=== PATIENT | male | born 1995 | race Caucasian/White ===

== ENCOUNTER 2021-12-04 12:23 | Emergency (ER) | payer OTHER, MEDICAID, SELFPAY ==
[2021-12-04 12:29] VITALS: BP 177/104; PULSE 86; RESP 18; TEMP 36.4; O2SAT 96; BMI 42.8
--- NOTE | 2021-12-04 14:48 | DI.RAD.S_ITS ---
PROCEDURE: XR HAND LT MIN 3V INDICATIONS: Left hand pain TECHNIQUE: 3 views of the hand acquired. COMPARISON: None. FINDINGS: Bones: No acute fractures or dislocations. Carpal bones are normally aligned. No suspicious bony lesions. Soft tissues: No suspicious soft tissue calcifications. Nonspecific soft tissue swelling is seen in the interspace between the 1st and 2nd digits. IMPRESSION: No acute osseous abnormality. Nonspecific soft tissue prominence in the interspace between the 1st and 2nd digits. Recommend correlation with clinical exam findings. MRI could be obtained for further evaluation if indicated clinically. Dictated by: Edmundo Álvarez M.D. on 12/04/2021 at 15:05 Approved by: Edmundo Álvarez M.D. on 12/04/2021 at 15:07
--- NOTE | 2021-12-04 15:09 | ED_ITS ---
HPI - Extremity Problem <Edwin Oseguera PA-C - Last Filed: 12/04/21 19:23> General Chief complaint: Extremity Problem,Nontraumatic Stated complaint: Left Hand Swelling/Pain/Tingling Time Seen by Provider: 12/04/21 14:46 Source: patient Mode of arrival: Ambulatory History of Present Illness HPI Narrative: Patient is a 26-year-old male presenting to the emergency department today for evaluation of left hand pain and swelling. He explains he has experienced pain and numbness in his left hand for ?a couple of months?, noting however that the pain, swelling, and numbness worsen significantly yesterday. He explains that he ?broke a few knuckles? in high school but denies any recent trauma or injury to his left hand. He states that his his pain is exacerbated when attempting to move the hand or open and close his palm. Of note, he states that his 2nd and 3rd digits on the left hand appear to be most significantly involved. No fevers, chills, chest pain, cough, shortness of breath, nausea, vomiting, d iarrhea, abdominal pain, constipation, dysuria, hematuria, or any other concerning symptoms reported. No further concerns were voiced at this time. Related Data Allergies Allergy/AdvReac Type Severity Reaction Status Date / Time No Known Drug Allergies Allergy Verified 12/04/21 12:29 Review of Systems <Edwin Oseguera PA-C - Last Filed: 12/04/21 19:23> Constitutional Constitutional: Denies chills, Denies fatigue, Denies fever(s), Denies frequent falls, Denies lethargy and Denies weakness Eyes Eyes: Denies loss of vision ENT Ears, Nose, Mouth, and Throat: Denies dizziness and Denies neck pain Cardiovascular Cardiovascular: Denies chest pain, Denies irregular heart rhythm, Denies lightheadedness, Denies palpitations, Denies dyspnea, Denies dyspnea on exertion and Denies orthopnea Respiratory Respiratory: Denies cough, Denies dyspnea, Denies dyspnea on exertion and Denies wheezing Gastrointestinal Gastrointestinal: Denies abdominal pain, Denies change in bowel habits, Denies diarrhea, Denies nausea and Denies vomiting Genitourinary Genitourinary: Denies hematuria, Denies flank pain, Denies urinary incontinence and Denies urinary urgency Musculoskeletal Musculoskeletal: Denies back pain, Reports arthralgias (Left hand pain), Reports joint swelling (Left hand swelling), Denies muscle weakness, Denies neck pain, Reports numbness (Left 2nd and 3rd digits) and Reports tingling (Left 2nd and 3rd digits) Integumentary/Breasts Skin/Breast: Denies pruritus, Denies erythema, Denies rash and Denies wounds Neurologic Neurologic: Denies behavioral changes, Denies confusion, Denies dizziness, Denies frequent falls, Denies loss of vision, Reports numbness (Left 2nd and 3rd digits), Reports tingling (Left 2nd and 3rd digits) and Denies weakness Psychiatric Psychiatric: Denies behavioral changes and Denies confusion Endocrine Endocrine: Denies fatigue and Denies palpitations Allergic/Immunologic Allergic/Immunologic: Denies wheezing Patient History <Edwin Oseguera PA-C - Last Filed: 12/04/21 19:23> Social History Smoking Status: Current every day smoker Smoking Status: Current every day smoker Substance Use Type: marijuana Exam <Edwin Oseguera PA-C - Last Filed: 12/04/21 19:23> Narrative Exam Narrative: GENERAL: 26 year old patient appears stated age. Well-developed patient, in no acute distress. HEAD: Atraumatic. Normocephalic. EYES: Pupils equal round and reactive. Extraocular motions intact. No scleral icterus. No injection or drainage. ENT: Nose without bleeding, purulent drainage. Throat without erythema, tonsillar hypertrophy or exudate. Airway patent. NECK: Trachea midline. Non tender CARDIOVASCULAR: Regular rate and rhythm without murmurs, gallops, or rubs. RESPIRATORY: Clear to auscultation. Breath sounds equal bilaterally. No wheezes, rales, or rhonchi. GASTROINTESTINAL: Abdomen soft, non-tender, nondistended. EXTREMITIES: No edema. Mild tenderness to palpation appreciated over the 2nd and 3rd metacarpals of the left hand. The left hand appears to be slightly swollen compared to the right hand. Gross motor function is intact throughout the bilateral upper extremities. Good sensation to light touch appreciated throughout the bilateral upper extremities. Positive Tinel sign on the left wrist, negative Tinel sign along the medial aspect of the left elbow. BACK: Nontender without deformity or crepitance. No flank tenderness. NEURO: AOx3. SKIN: No rash or erythema of visible areas Initial Vital Signs Initial Vital Signs: Vital Signs Temperature 97.6 F 12/04/21 12:29 Pulse Rate 86 12/04/21 12:29 Respiratory Rate 18 12/04/21 12:29 Blood Pressure 177/104 H 12/04/21 12:29 Pulse Oximetry 96 12/04/21 12:29 <Thalia Lo DO - Last Filed: 12/07/21 08:41> Initial Vital Signs Initial Vital Signs: Vital Signs Temperature 97.6 F 12/04/21 12:29 Pulse Rate 86 12/04/21 12:29 Respiratory Rate 18 12/04/21 12:29 Blood Pressure 177/104 H 12/04/21 12:29 Pulse Oximetry 96 12/04/21 12:29 Course <Edwin Oseguera PA-C - Last Filed: 12/04/21 19:23> Course Course Narrative: X-ray of left hand obtained. Orders Ordered: ED Orders 12/04/21 14:48 XR hand LT min 3V Stat Vital Signs Vital signs: Vital Signs - 8 hr 12/04/21 12:29 12/04/21 16:46 Temperature 97.6 F Pulse Rate 86 88 Respiratory Rate 18 16 Blood Pressure 177/104 H 166/107 H Pulse Oximetry 96 99 <Thalia Lo DO - Last Filed: 12/07/21 08:41> Orders Ordered: ED Orders 12/04/21 14:48 XR hand LT min 3V Stat Vital Signs Vital signs: Vital Signs - 8 hr 12/04/21 12:29 12/04/21 16:46 Temperature 97.6 F Pulse Rate 86 88 Respiratory Rate 18 16 Blood Pressure 177/104 H 166/107 H Pulse Oximetry 96 99 MDM - Extremity (Nontraumatic) <SABINA Saldivar Last Filed: 12/04/21 19:23> Imaging Data Extremity x-ray #1: Radiologist's Impression: PROCEDURE:? XR HAND LT MIN 3V ? INDICATIONS:? Left hand pain ? TECHNIQUE:? 3 views of the hand acquired.? ? COMPARISON:? None. ? FINDINGS:? ? Bones:? No acute fractures or dislocations.? Carpal bones are normally aligned.? No suspicious bony lesions.? ? Soft tissues:? No suspicious soft tissue calcifications.? Nonspecific soft tissue swelling is seen in the interspace between the 1st and 2nd digits. ? ? IMPRESSION:? No acute osseous abnormality.? Nonspecific soft tissue prominence in the interspace between the 1st and 2nd digits.? Recommend correlation with clinical exam findings.? MRI could be obtained for further evaluation if indicated clinically. ? ? Dictated by: Edmundo Álvarez M.D. on 12/04/2021 at 15:05 ? ? Approved by: Edmundo Álvarez M.D. on 12/04/2021 at 15:07 ? MDM Narrative Medical decision making narrative: Differential diagnosis to consider but not limited to fracture versus dislocation versus sprain versus strain versus carpal tunnel syndrome versus flexor tenosynovitis. Discussed results of x-ray with patient informed him that there was an area of swelling noted on x-ray. I discussed with the patient that this may be a nonspecific finding, however I urged him to return to the emergency department if he experiences worsening pain or swelling in the hand. He expresses understanding and agrees to plan. Additionally, I recommended that he follow up with medicare specialist for further evaluation of his pain and numbness. Referral was set up for him in the emergency department today. He states that this time he is comfortable being discharged home and is stable for discharge. Strict return precautions were discussed with the patient prior to discharge. Discharge Plan Departure Patient Disposition: Home Clinical Impression: Hand pain, left, Swelling of left hand Instructions: DI for Hand Injury Activity Restrictions/Additional Instructions: *You have been diagnosed with left hand pain, left hand swelling *What to do: *Please continue to take your regular medications as directed. [ ] New medication prescriptions sent to your pharmacy: [ ] [ ] New medication written as a paper prescription [X] No new medications given You were evaluated in the emergency department today for left hand pain and swelling. X-ray imaging obtained in the emergency department today did not show signs of acute bony abnormality, however it did show signs of soft tissue swelling. This finding may require further evaluation and urgent to return to the emergency department if you experience worsening pain or swelling in the left hand. I have set up a referral free to follow-up with an medicare specialist for further evaluation and management of your symptoms. Please follow-up with the primary care provider within the next 2-3 days for further evaluation. Do not hesitate to return to the emergency department if you experience worsening pain, worsening swelling, fever, loss of sensation in left hand, or any other concerning symptoms. *Please follow up with your primary care provider in 2-3 days, call for an appointment. Let them know you were seen in the Emergency Department and that we ask that you be seen in follow up. We will electronically transmit a record of today's note if your PCP is in our system *If you do not have a primary care provider please contact the [facility] Resource line at [phone]. They will ask some questions about your medical history and help get you set up with a doctor in the community. *Return to Emergency Department if you should have any new, worsening or concerning symptoms, such as fever greater than 101 F, shaking chills, worsening pain, persistent vomiting or other bothersome symptoms. Referrals: Garo Carrero MD [Physician] - Stand Alone Forms: Work Release Note <Thalia Lo DO - Last Filed: 12/07/21 08:41> Cosign ED Attending Cosshaunature Attestation: I was immediately available in the department for consultation. Documentation has been reviewed. Case was discussed imaging was reviewed. Patient to follow- up with orthopedic surgery for further evaluation.
[2021-12-04 16:46] VITALS: BP 166/107; PULSE 88; RESP 16; O2SAT 99
== END 2021-12-04 16:46 | disposition home or self-care (01) ==
PROVIDERS: Emergency Provider Physician Assistant
DX: M79.642 Pain in left hand (principal); R22.32 Localized swelling, mass and lump, left upper limb
CPT/HCPCS: 73130; 99283

== ENCOUNTER 2021-12-27 15:51 | Emergency (ER) | payer OTHER, MEDICAID, SELFPAY ==
[2021-12-27 15:58] VITALS: BP 169/71; PULSE 95; RESP 22; TEMP 36.5; O2SAT 97
--- NOTE | 2021-12-27 16:30 | ED.NAVMDI ---
HPI - Nausea/Vomiting/Diarrhea <ALEXEI Andre - Last Filed: 12/27/21 19:57> General Chief complaint: Nausea/Vomiting/Diarrhea Stated complaint: vomiting for 3 days, seeing spots Time Seen by Provider: 12/27/21 16:19 Source: patient Mode of arrival: Ambulatory History of Present Illness HPI Narrative: This is a 26-year-old male presents to the emergency department with 3 days of vomiting, diarrhea, runny nose, cough, and feeling poorly. Patient states he has a history of GERD, does not take any medications, states he has borderline hypertension and borderline diabetes. States that his child is also sick with an upper respiratory infection. Patient denies any fever, endorses he has had 4 episodes of vomiting for the last 3 days, 1-2 episodes of diarrhea each day. He denies taking any medication, states that he feels dehydrated. Patient denies any blood in his stool, emesis, states that his pain is worse at night, he has intermittent pain in his lower left quadrant. He denies any constipation. Denies any chest pain, shortness of breath, difficulty breathing, or other symptom. Denies any syncope or weakness. Related Data Previous Rx's Medication Instructions Recorded omeprazole 20 mg capsule,delayed 20 mg PO DAILY #30 cap 12/27/21 release ondansetron 4 mg disintegrating 4 mg PO Q8H #10 tab 12/27/21 tablet Allergies Allergy/AdvReac Type Severity Reaction Status Date / Time No Known Drug Allergies Allergy Verified 12/04/21 12:29 Review of Systems <ALEXEI Andre - Last Filed: 12/27/21 19:57> Review of Systems Narrative: General: denies fever, chills, malaise, sweats, fatigue Head/Neck: denies headache, neck pain, dizziness, endorses congestion Eyes: denies visual changes, eye pain Cardio: denies chest pain, palpitations, edema Respiratory: denies dyspnea, cough, orthopnea GI: Endorses lower left quadrant abdominal pain, nausea, vomiting, and diarrhea : denies dysuria, hematuria, urinary retention, frequency or incontinence MSK: denies joint pain, muscle weakness Skin: denies rash, itching, skin lesions or other Neuro: denies numbness, tingling Patient History <ALEXEI Andre - Last Filed: 12/27/21 19:57> Social History Smoking Status: Current every day smoker Smoking Status: Current every day smoker Substance Use Type: marijuana Exam <ALEXEI Andre - Last Filed: 12/27/21 19:57> Narrative Exam Narrative: Independently reviewed vitals signs and nursing notes. General: cooperative, comfortable, in no acute distress, well developed and well groomed Head: atraumatic, symmetrical facial expressions Neck: supple, atraumatic, without lymphadenopathy. Eyes: pupils equal round and reactive, EOMI, conjunctiva normal Nose: nares patent, no rhinorrhea Mouth/Throat: uvula midline, moist mucus membranes Cardiovascular: regular rate and rhythm, no peripheral edema, warm extremities Respiratory: normal effort, able to speak in complete sentences, no audible wheezing, stridor, or rales. No retractions or tachypnea. GI: abdomen is obese, soft, nontender to palpation, nondistended, no masses, no exquisite tenderness with exam, without guarding or rebound. MSK: moves all extremities, ambulatory w/steady gait, neurovascularly intact, no weakness Skin: brisk capillary refill, no rash, no erythema Neuro: normal speech and cognition, A&O x3, normal tone Psych: mental status is grossly normal, congruent mood, normal affect, pleasant and cooperative Initial Vital Signs Initial Vital Signs: Vital Signs Temperature 97.7 F 12/27/21 15:58 Pulse Rate 95 H 12/27/21 15:58 Respiratory Rate 22 12/27/21 15:58 Blood Pressure 169/71 H 12/27/21 15:58 Pulse Oximetry 97 12/27/21 15:58 <Kayleen Lucero DO - Last Filed: 12/28/21 09:00> Initial Vital Signs Initial Vital Signs: Vital Signs Temperature 97.7 F 12/27/21 15:58 Pulse Rate 95 H 12/27/21 15:58 Respiratory Rate 22 12/27/21 15:58 Blood Pressure 169/71 H 12/27/21 15:58 Pulse Oximetry 97 12/27/21 15:58 Course <ALEXEI Andre - Last Filed: 12/27/21 19:57> Orders Ordered: Discontinued Medications Sodium Chloride (Normal Saline 0.9%) 1,000 mls @ 1,000 mls/hr IV BOLUS ONE Stop: 12/27/21 17:10 Last Admin: 12/27/21 16:50 Dose: Not Given Documented by: ROSALINDA Ketorolac Tromethamine (Ketorolac 30 Mg/Ml Vial) 15 mg IM NOW ONE Stop: 12/27/21 16:29 Last Admin: 12/27/21 16:42 Dose: 15 mg Documented by: ROSALINDA Ketorolac Tromethamine (Ketorolac 30 Mg/Ml Vial) 15 mg IM NOW ONE Stop: 12/27/21 16:36 Last Admin: 12/27/21 16:50 Dose: Not Given Documented by: ROSALINDA Ondansetron HCl (Ondansetron 4 Mg/2 Ml Inj) 4 mg IV NOW ONE Stop: 12/27/21 16:12 Last Admin: 12/27/21 16:50 Dose: Not Given Documented by: ROSALINDA Ondansetron HCl (Ondansetron 4 Mg Odt) 4 mg SL NOW ONE Stop: 12/27/21 16:29 Last Admin: 12/27/21 16:51 Dose: Not Given Documented by: ROSALINDA Ondansetron HCl (Ondansetron 4 Mg Odt) 4 mg SL NOW ONE Stop: 12/27/21 16:36 Last Admin: 12/27/21 16:42 Dose: 4 mg Documented by: ROSALINDA Pantoprazole Sodium (Pantoprazole Dr 20 Mg Tablet) 20 mg PO NOW ONE Stop: 12/27/21 16:29 Last Admin: 12/27/21 16:51 Dose: Not Given Documented by: ROSALINDA Pantoprazole Sodium (Pantoprazole 40 Mg Vial) 20 mg IV NOW ONE Stop: 12/27/21 16:31 Last Admin: 12/27/21 16:51 Dose: Not Given Documented by: ROSALINDA Pantoprazole Sodium (Pantoprazole Dr 20 Mg Tablet) 20 mg PO NOW ONE Stop: 12/27/21 16:36 Last Admin: 12/27/21 16:42 Dose: 20 mg Documented by: ROSALINDA Vital Signs Vital signs: Vital Signs - 8 hr 12/27/21 15:58 12/27/21 17:49 Temperature 97.7 F Pulse Rate 95 H 90 Respiratory Rate 22 16 Blood Pressure 169/71 H 160/70 H Pulse Oximetry 97 99 <Kayleen Lucero, DO - Last Filed: 12/28/21 09:00> Orders Ordered: Discontinued Medications Sodium Chloride (Normal Saline 0.9%) 1,000 mls @ 1,000 mls/hr IV BOLUS ONE Stop: 12/27/21 17:10 Last Admin: 12/27/21 16:50 Dose: Not Given Documented by: ROSALINDA Ketorolac Tromethamine (Ketorolac 30 Mg/Ml Vial) 15 mg IM NOW ONE Stop: 12/27/21 16:29 Last Admin: 12/27/21 16:42 Dose: 15 mg Documented by: ROSALINDA Ketorolac Tromethamine (Ketorolac 30 Mg/Ml Vial) 15 mg IM NOW ONE Stop: 12/27/21 16:36 Last Admin: 12/27/21 16:50 Dose: Not Given Documented by: ROSALINDA Ondansetron HCl (Ondansetron 4 Mg/2 Ml Inj) 4 mg IV NOW ONE Stop: 12/27/21 16:12 Last Admin: 12/27/21 16:50 Dose: Not Given Documented by: ROSALINDA Ondansetron HCl (Ondansetron 4 Mg Odt) 4 mg SL NOW ONE Stop: 12/27/21 16:29 Last Admin: 12/27/21 16:51 Dose: Not Given Documented by: ROSALINDA Ondansetron HCl (Ondansetron 4 Mg Odt) 4 mg SL NOW ONE Stop: 12/27/21 16:36 Last Admin: 12/27/21 16:42 Dose: 4 mg Documented by: ROSALINDA Pantoprazole Sodium (Pantoprazole Dr 20 Mg Tablet) 20 mg PO NOW ONE Stop: 12/27/21 16:29 Last Admin: 12/27/21 16:51 Dose: Not Given Documented by: ROSALINDA Pantoprazole Sodium (Pantoprazole 40 Mg Vial) 20 mg IV NOW ONE Stop: 12/27/21 16:31 Last Admin: 12/27/21 16:51 Dose: Not Given Documented by: ROSALINDA Pantoprazole Sodium (Pantoprazole Dr 20 Mg Tablet) 20 mg PO NOW ONE Stop: 12/27/21 16:36 Last Admin: 12/27/21 16:42 Dose: 20 mg Documented by: ROSALINDA Vital Signs Vital signs: Vital Signs - 8 hr 12/27/21 15:58 12/27/21 17:49 Temperature 97.7 F Pulse Rate 95 H 90 Respiratory Rate 22 16 Blood Pressure 169/71 H 160/70 H Pulse Oximetry 97 99 MDM - Nausea/Vomiting/Diarrhea <Risa Davis [facility] - Last Filed: 12/27/21 19:57> Lab Data Result diagrams: 12/27/21 17:05 12/27/21 17:05 Labs: Lab Results 12/27/21 12/27/21 12/27/21 Range/Units 17:05 17:05 17:05 WBC 9.1 (4.5-11.0) X10^3/uL RBC 5.79 (4.5-5.9) X10^6/uL Hgb 17.1 (13.5-17.5) g/dL Hct 49.3 (41-53) % MCV 85.2 (80-100) fL MCH 29.5 (26-34) PG MCHC 34.6 (30-36) % RDW 13.2 (11.6-14.8) % Plt Count 147 L (150-400) X10^3/uL Neut % (Auto) 60.5 (50-75) % Lymph % (Auto) 30.2 (25-40) % [place] % (Auto) 6.7 (3-14) % Eos % (Auto) 1.9 L (2-4) % Baso % (Auto) 0.7 (0-2) % Neut # (Auto) 5500 (0737-9845) /uL Lymph # (Auto) 2800 (3875-7670) /uL [place] # (Auto) 600 (0-900) /uL Eos # (Auto) 200 (0-450) /uL Baso # (Auto) 100 (0-100) /uL Sodium 141 (137-145) mmol/L Potassium 4.2 (3.4-5.1) mmol/L Chloride 105 (98-107) mmol/L Carbon Dioxide 28 (22-32) mmol/L BUN 19 (9-20) mg/dL Creatinine 0.95 (0.66-1.25) mg/dL Estimated GFR > 60 (>60) mL/min BUN/Creatinine Ratio 20.0 (6-22) Glucose 104 H (70-100) mg/dL Lactate 1.0 (0.7-2.1) mmol/L Calcium 8.7 (8.4-10.2) mg/dL Total Bilirubin 0.6 (0.2-1.3) mg/dL AST 46 (17-59) IU/L ALT 68 H (<50) IU/L Alkaline Phosphatase 45 (38-126) U/L Total Protein 7.3 (6.3-8.2) g/dL Albumin 4.2 (3.5-5.0) g/dL Globulin 3.1 (1.7-4.1) g/dL Albumin/Globulin Ratio 1.4 (1.0-2.8) Lipase (23-300) U/L 12/27/21 Range/Units 17:05 WBC (4.5-11.0) X10^3/uL RBC (4.5-5.9) X10^6/uL Hgb (13.5-17.5) g/dL Hct (41-53) % MCV (80-100) fL MCH (26-34) PG MCHC (30-36) % RDW (11.6-14.8) % Plt Count (150-400) X10^3/uL Neut % (Auto) (50-75) % Lymph % (Auto) (25-40) % [place] % (Auto) (3-14) % Eos % (Auto) (2-4) % Baso % (Auto) (0-2) % Neut # (Auto) (6047-0273) /uL Lymph # (Auto) (2049-1944) /uL [place] # (Auto) (0-900) /uL Eos # (Auto) (0-450) /uL Baso # (Auto) (0-100) /uL Sodium (137-145) mmol/L Potassium (3.4-5.1) mmol/L Chloride (98-107) mmol/L Carbon Dioxide (22-32) mmol/L BUN (9-20) mg/dL Creatinine (0.66-1.25) mg/dL Estimated GFR (>60) mL/min BUN/Creatinine Ratio (6-22) Glucose (70-100) mg/dL Lactate (0.7-2.1) mmol/L Calcium (8.4-10.2) mg/dL Total Bilirubin (0.2-1.3) mg/dL AST (17-59) IU/L ALT (<50) IU/L Alkaline Phosphatase (38-126) U/L Total Protein (6.3-8.2) g/dL Albumin (3.5-5.0) g/dL Globulin (1.7-4.1) g/dL Albumin/Globulin Ratio (1.0-2.8) Lipase 105 (23-300) U/L [facility] Narrative Medical decision making narrative: This is a 26-year-old male presents to the emergency department complaining of 3 days of nausea, vomiting, diarrhea, congestion, history of GERD, and not feeling well. Patient brought in his son who has an upper respiratory infection, they are sharing many symptoms. Patient denies taking any medication at home, he was requesting something for nausea. Patient has 4 mg of sublingual Zofran, was able to p.o. challenge afterwards and keep his liquids down he was given Protonix and Toradol, states that he felt much better after these medications and some observation. Patient was able to tolerate p.o. without any vomiting, he is afebrile, vital signs are within normal limits, abdominal exam without tenderness to palpation. findings, grossly unremarkable, no leukocytosis, ALT was mildly elevated without any priors to compare to, presume fatty liver infiltration due to patient's body habitus. Patient is nontoxic appearing. No peritoneal signs on abdominal exam. Patient remains p.o. tolerant. Serial abdominal exam without increase in abdominal pain. Given history and exam, low suspicion for acute abdominal process, such as acute cholecystitis, pancreatitis, perforated viscus, atypical appendicitis, colitis, diverticulitis or torsion. Extensive conversation about ER return precautions and need for close follow-up. Patient is appropriate and amenable to discharge home. Vital signs are stable on repeat examination is unremarkable. Patient has been informed of results. Patient has been given strict return to ER precautions for any new or worsening symptoms. Patient understands to follow up closely with outpatient providers as instructed. Patient understands plan and agrees to discharge home. All questions and concerns answered at this time. <Kayleen Lucero, - Last Filed: 12/28/21 09:00> Lab Data Labs: Lab Results 12/27/21 12/27/21 12/27/21 Range/Units 17:05 17:05 17:05 WBC 9.1 (4.5-11.0) X10^3/uL RBC 5.79 (4.5-5.9) X10^6/uL Hgb 17.1 (13.5-17.5) g/dL Hct 49.3 (41-53) % MCV 85.2 (80-100) fL MCH 29.5 (26-34) PG MCHC 34.6 (30-36) % RDW 13.2 (11.6-14.8) % Plt Count 147 L (150-400) X10^3/uL Neut % (Auto) 60.5 (50-75) % Lymph % (Auto) 30.2 (25-40) % [place] % (Auto) 6.7 (3-14) % Eos % (Auto) 1.9 L (2-4) % Baso % (Auto) 0.7 (0-2) % Neut # (Auto) 5500 (3502-3734) /uL Lymph # (Auto) 2800 (5196-1790) /uL [place] # (Auto) 600 (0-900) /uL Eos # (Auto) 200 (0-450) /uL Baso # (Auto) 100 (0-100) /uL Sodium 141 (137-145) mmol/L Potassium 4.2 (3.4-5.1) mmol/L Chloride 105 (98-107) mmol/L Carbon Dioxide 28 (22-32) mmol/L BUN 19 (9-20) mg/dL Creatinine 0.95 (0.66-1.25) mg/dL Estimated GFR > 60 (>60) mL/min BUN/Creatinine Ratio 20.0 (6-22) Glucose 104 H (70-100) mg/dL Lactate 1.0 (0.7-2.1) mmol/L Calcium 8.7 (8.4-10.2) mg/dL Total Bilirubin 0.6 (0.2-1.3) mg/dL AST 46 (17-59) IU/L ALT 68 H (<50) IU/L Alkaline Phosphatase 45 (38-126) U/L Total Protein 7.3 (6.3-8.2) g/dL Albumin 4.2 (3.5-5.0) g/dL Globulin 3.1 (1.7-4.1) g/dL Albumin/Globulin Ratio 1.4 (1.0-2.8) Lipase (23-300) U/L 12/27/21 Range/Units 17:05 WBC (4.5-11.0) X10^3/uL RBC (4.5-5.9) X10^6/uL Hgb (13.5-17.5) g/dL Hct (41-53) % MCV (80-100) fL MCH (26-34) PG MCHC (30-36) % RDW (11.6-14.8) % Plt Count (150-400) X10^3/uL Neut % (Auto) (50-75) % Lymph % (Auto) (25-40) % [place] % (Auto) (3-14) % Eos % (Auto) (2-4) % Baso % (Auto) (0-2) % Neut # (Auto) (8709-9532) /uL Lymph # (Auto) (1484-3075) /uL [place] # (Auto) (0-900) /uL Eos # (Auto) (0-450) /uL Baso # (Auto) (0-100) /uL Sodium (137-145) mmol/L Potassium (3.4-5.1) mmol/L Chloride (98-107) mmol/L Carbon Dioxide (22-32) mmol/L BUN (9-20) mg/dL Creatinine (0.66-1.25) mg/dL Estimated GFR (>60) mL/min BUN/Creatinine Ratio (6-22) Glucose (70-100) mg/dL Lactate (0.7-2.1) mmol/L Calcium (8.4-10.2) mg/dL Total Bilirubin (0.2-1.3) mg/dL AST (17-59) IU/L ALT (<50) IU/L Alkaline Phosphatase (38-126) U/L Total Protein (6.3-8.2) g/dL Albumin (3.5-5.0) g/dL Globulin (1.7-4.1) g/dL Albumin/Globulin Ratio (1.0-2.8) Lipase 105 (23-300) U/L Discharge Plan Departure Patient Disposition: Home Clinical Impression: Gastroenteritis, Vomiting and diarrhea Instructions: Diarrhea, DI for Viral Gastroenteritis -- Adult, DI for Vomiting -- Adult Activity Restrictions/Additional Instructions: *You have been diagnosed with vomiting and diarrhea likely from gastroenteritis/a viral respiratory illness that causes diarrhea and vomiting. You in your some likely have the same thing, if he develops any nausea vomiting please be prepared to keep him hydrated. Your lab work is reassuring, there is no signs of systemic infection, all of your abdominal organs appear to be working as they should, he do not have any elevated white count, and all of your lab work is within normal ranges including your electrolytes. Please continue to try stay hydrated, take Zofran every 6-8 hours as necessary for nausea and vomiting. Please avoid fatty foods, acidic foods, and caffeine. Please take the omeprazole daily for the next 2 weeks to see if this also helps your abdominal pain. Thank you for trusting us with your care, please follow-up with your primary care provider as soon as able. I hope you start feeling better soon. *What to do: *Please continue to take your regular medications as directed. [ x] New medication prescriptions sent to your pharmacy: [ [facility]] [ ] New medication written as a paper prescription [ ] No new medications given *Please follow up with your primary care provider in 2-3 days, call for an appointment. Let them know you were seen in the Emergency Department and that we asked that you be seen for follow-up. We will electronically transmit a record of today's note if your PCP is in our system *If you do not have a primary care provider please contact [phone] to establish care with one of the [facility] primary care providers. *Return to Emergency Department if you should have any new, worsening or concerning symptoms, such as [fever greater than 101F, chills, worsening pain, persistent vomiting or other bothersome symptoms] Prescriptions: New ondansetron 4 mg tablet,disintegrating 4 mg PO Q8H Qty: 10 0RF omeprazole 20 mg capsule,delayed release(DR/EC) 20 mg PO DAILY Qty: 30 0RF Stand Alone Forms: Work Release Note <Kayleen Lucero, - Last Filed: 12/28/21 09:00> [facility] ED Attending Jonasature Attestation: I was immediately available in the department for consultation. Documentation has been reviewed. I agree with assessment and plan.
[2021-12-27] MEDS: KETOROLAC 30 MG/ML VIAL 15 MG IM (16:42)
[2021-12-27] MEDS: PANTOPRAZOLE DR 20 MG TABLET PO (16:42)
[2021-12-27] MEDS: ONDANSETRON 4 MG ODT SL (16:42)
[2021-12-27 17:16] LABS: Add Manual Diff / Slide Review NO; Basophils Absolute Auto 100 /uL (0-100); Basophils Percent Auto 0.7 % (0-2); Eosinophils Absolute Auto 200 /uL (0-450); Eosinophils Percent Auto 1.9 % (2-4); Hematocrit 49.3 % (41-53); Hemoglobin 17.1 g/dL (13.5-17.5); Lymphocytes Absolute Auto 2800 /uL (1100-4500); Lymphocytes Percent Auto 30.2 % (25-40); Mean Corpuscular HGB Conc 34.6 % (30-36); Mean Corpuscular Hemoglobin 29.5 PG (26-34); Mean Corpuscular Volume 85.2 fL (80-100); Monocytes Absolute Auto 600 /uL (0-900); Monocytes Percent Auto 6.7 % (3-14); Neutrophils Absolute Auto 5500 /uL (1500-7000); Neutrophils Percent Auto 60.5 % (50-75); Platelet Count 147 X10^3/uL (150-400); Red Blood Cell Count 5.79 X10^6/uL (4.5-5.9); Red Cell Distribution Width 13.2 % (11.6-14.8); White Blood Cell Count 9.1 X10^3/uL (4.5-11.0)
[2021-12-27 17:29] LABS: Alanine Aminotransferase 68 IU/L (<50); Albumin 4.2 g/dL (3.5-5.0); Albumin Globulin Ratio 1.4 (1.0-2.8); Alkaline Phosphatase 45 U/L (38-126); Aspartate Aminotransferase 46 IU/L (17-59); Bilirubin Total 0.6 mg/dL (0.2-1.3); Blood Urea Nitrogen 19 mg/dL (9-20); Calcium 8.7 mg/dL (8.4-10.2); Carbon Dioxide 28 mmol/L (22-32); Chloride 105 mmol/L (98-107); Estimated Glomerular Filt Rate > 60 mL/min (>60); Globulin 3.1 g/dL (1.7-4.1); Glucose 104 mg/dL (70-100); HEMOLYSIS 31 (0-50); Lipase 105 U/L (23-300); Potassium 4.2 mmol/L (3.4-5.1); Sodium 141 mmol/L (137-145); Total Protein 7.3 g/dL (6.3-8.2)
[2021-12-27 17:49] VITALS: BP 160/70; PULSE 90; RESP 16; O2SAT 99
== END 2021-12-27 17:50 | disposition home or self-care (01) ==
PROVIDERS: Emergency Medicine; Emergency Provider Nurse Practitioner Critical Care Medicine
DX: K52.9 Noninfective gastroenteritis and colitis, unspecified (principal)
CPT/HCPCS: 36415; 80053; 83605; 83690; 85025; 96372; 99283; J1885

== ENCOUNTER 2022-01-28 14:00 | Emergency (ER) | payer OTHER, MEDICAID, SELFPAY ==
[2022-01-28] VITALS (10 sets, daily range): BP systolic 123–153; BP diastolic 77–103; PULSE 76–102; RESP 16–29; TEMP 36.8; O2SAT 92–98
--- NOTE | 2022-01-28 14:13 | DI.US.S_ITS ---
PROCEDURE: US ABDOMEN LIMITED INDICATIONS: RUQ PAIN; KNOWN GALLSTONES TECHNIQUE: Real-time focused scanning was performed of the abdomen, with image documentation. COMPARISON: None. FINDINGS: The liver demonstrates enlarged size. The liver demonstrates generalized mildly increased echogenicity. This decreases ultrasound sensitivity for detection of hepatic masses. Two gallstones are seen that measure 1.9 cm and 1.5 cm. The gallbladder wall is not thickened, measuring 3 mm or less. No specific pericholecystic fluid is seen. The sonographic Sr sign is positive. There is no biliary dilatation, the common bile duct measures 5 mm. The pancreas is not well seen, secondary to overlying bowel gas. IMPRESSION: Gallstones are seen and there is a positive sonographic Sr sign. No additional signs of cholecystitis are seen. No biliary dilatation. Dictated by: Omar Luna M.D. on 01/28/2022 at 15:58 Approved by: Omar Luna M.D. on 01/28/2022 at 16:00
--- NOTE | 2022-01-28 14:14 | ED_ITS ---
HPI - Abdominal Pain <Reji Rosado PA-C - Last Filed: 01/28/22 17:02> General Chief Complaint: Abdominal Pain Stated Complaint: GALLBLADDER PAIN Time Seen by Provider: 01/28/22 14:08 Source: patient Mode of arrival: Ambulatory History of Present Illness HPI narrative: Patient is a 26-year-old male presents to the ED complaining of right upper quadrant abdominal pain. He states the pain started this morning and he had a breakfast burrito of which increased his pain. He has been seen in the past for similar complaint was told he had gallstones was evaluated by general surgeon, patient was scheduled to have his gallbladder removed but the insurance denied the surgery as result patient did not have a cholecystectomy. He states the symptoms he is having today are very similar to his previous problem with his gallbladder. He denies any EtOH consumption. No reported nausea vomiting or diarrhea. No reported fever or cough or congestion shortness of breath or chest pain. Patient is also reporting that he has had some associated numbness in his right hand that goes into his middle finger ring finger and pinky finger. 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 No recent trauma or any kind of injury reported. Related Data Previous Rx's Medication Instructions Recorded omeprazole 20 mg capsule,delayed 20 mg PO DAILY #30 cap 12/27/21 release ondansetron 4 mg disintegrating 4 mg PO Q8H #10 tab 12/27/21 tablet dicyclomine 20 mg tablet 20 mg PO TID #30 tab 01/28/22 Allergies Allergy/AdvReac Type Severity Reaction Status Date / Time No Known Drug Allergies Allergy Verified 12/04/21 12:29 Review of Systems <Reji Rosado PA-C - Last Filed: 01/28/22 17:02> Review of Systems ROS Unobtainable: All systems reviewed & are unremarkable except as noted in HPI and below Constitutional Constitutional: Denies chills, Denies fatigue, Denies fever(s), Denies frequent falls, Denies lethargy and Denies weakness Eyes Eyes: Denies change in vision, Denies eye discharge, Denies irritation and Denies loss of vision ENT Ears, Nose, Mouth, and Throat: Denies change in voice, Denies dizziness, Denies neck pain, Denies sore throat and Denies throat swelling Cardiovascular Cardiovascular: Denies chest pain, Denies irregular heart rhythm, Denies lightheadedness, Denies palpitations, Denies dyspnea, Denies dyspnea on exertion and Denies orthopnea Respiratory Respiratory: Denies cough, Denies dyspnea, Denies dyspnea on exertion and Denies wheezing Gastrointestinal Gastrointestinal: Reports abdominal pain, Denies change in bowel habits, Denies diarrhea, Denies nausea and Denies vomiting Genitourinary Genitourinary: Denies hematuria, Denies flank pain, Denies urinary incontinence and Denies urinary urgency Musculoskeletal Musculoskeletal: Denies back pain, Denies muscle weakness, Denies neck pain, Denies numbness and Denies tingling Integumentary/Breasts Skin/Breast: Denies pruritus, Denies erythema, Denies rash and Denies wounds Neurologic Neurologic: Denies behavioral changes, Denies confusion, Denies dizziness, Denies frequent falls, Denies loss of vision, Denies numbness, Denies tingling and Denies weakness Psychiatric Psychiatric: Denies anxiety, Denies behavioral changes, Denies confusion, Denies depression, Denies homicidal ideation and Denies suicidal ideation Endocrine Endocrine: Denies fatigue, Denies flushing and Denies palpitations Hematologic/Lymphatic Hematologic/Lymphatic: Denies easy bruising Allergic/Immunologic Allergic/Immunologic: Denies urticaria, Denies throat swelling and Denies wheezing Patient History <Reji Rosado PA-C - Last Filed: 01/28/22 17:02> Social History Smoking Status: Current every day smoker Smoking Status: Current every day smoker Substance Use Type: marijuana Exam <Reji Rosado PA-C - Last Filed: 01/28/22 17:02> Initial Vital Signs Initial Vital Signs: Vital Signs Temperature 98.2 F 01/28/22 14:09 Pulse Rate 102 H 01/28/22 14:09 Respiratory Rate 22 01/28/22 14:09 Blood Pressure 138/78 01/28/22 14:09 Pulse Oximetry 98 01/28/22 14:09 Const General: cooperative, healthy appearing and acute distress Nutritional Appearance: obese centrally obese HENGA Head: normal to inspection and normocephalic Ears: hearing grossly normal bilaterally and external ears normal Nose: external nose normal Face and sinus: normal facial exam Mouth: oral mucosae normal Neck Neck: normal visual inspection, full ROM and supple Resp Effort & Inspection: normal respiratory effort and able to speak in complete sentences Auscultation: clear to auscultation bilaterally Cardio Palpation: normal PMI Rate: regular rate Rhythm: regular rhythm GI Inspection: normal to inspection Palpation: soft and tender Percussion: normal to percussion Auscultation: normal bowel sounds Skin General: no rashes or lesions noted Extrem Right upper extremity: normal to inspection, full ROM, normal capillary refill and wrist Details: other (Positive Phalen's and Tinel's) <Kayleen Lucero DO - Last Filed: 01/29/22 08:24> Initial Vital Signs Initial Vital Signs: Vital Signs Temperature 98.2 F 01/28/22 14:09 Pulse Rate 102 H 01/28/22 14:09 Respiratory Rate 22 01/28/22 14:09 Blood Pressure 138/78 01/28/22 14:09 Pulse Oximetry 98 01/28/22 14:09 Course <Reji Rosado PA-C - Last Filed: 01/28/22 17:02> Orders Ordered: Discontinued Medications Sodium Chloride (Normal Saline 0.9%) 1,000 mls @ 150 mls/hr IV CONT ANSHUL Last Infusion: 01/28/22 17:13 Dose: 0 mls/hr Documented by: Admin: 01/28/22 14:23 Dose: 150 mls/hr Documented by: APRIL Ketorolac Tromethamine (Ketorolac 30 Mg/Ml Vial) 30 mg IV NOW ONE Stop: 01/28/22 14:13 Last Admin: 01/28/22 14:22 Dose: 30 mg Documented by: APRIL Vital Signs Vital signs: Vital Signs - 8 hr 01/28/22 14:09 01/28/22 14:32 01/28/22 14:33 Temperature 98.2 F Pulse Rate 102 H 93 H 90 Respiratory Rate 22 20 22 Blood Pressure 138/78 127/89 Pulse Oximetry 98 95 95 01/28/22 14:35 01/28/22 14:36 01/28/22 15:00 Temperature Pulse Rate 92 H 92 H 93 H Respiratory Rate 17 24 Blood Pressure 135/103 H 153/93 H 139/80 Pulse Oximetry 94 95 95 01/28/22 15:30 01/28/22 16:00 Temperature Pulse Rate 76 91 H Respiratory Rate 16 Blood Pressure 123/77 Pulse Oximetry 92 95 <Kayleen Lucero DO - Last Filed: 01/29/22 08:24> Orders Ordered: Discontinued Medications Sodium Chloride (Normal Saline 0.9%) 1,000 mls @ 150 mls/hr IV CONT ANSHUL Last Infusion: 01/28/22 17:13 Dose: 0 mls/hr Documented by: Admin: 01/28/22 14:23 Dose: 150 mls/hr Documented by: APRIL Ketorolac Tromethamine (Ketorolac 30 Mg/Ml Vial) 30 mg IV NOW ONE Stop: 01/28/22 14:13 Last Admin: 01/28/22 14:22 Dose: 30 mg Documented by: APRIL Vital Signs Vital signs: Vital Signs - 8 hr 01/28/22 14:09 01/28/22 14:32 01/28/22 14:33 Temperature 98.2 F Pulse Rate 102 H 93 H 90 Respiratory Rate 22 20 22 Blood Pressure 138/78 127/89 Pulse Oximetry 98 95 95 01/28/22 14:35 01/28/22 14:36 01/28/22 15:00 Temperature Pulse Rate 92 H 92 H 93 H Respiratory Rate 17 24 Blood Pressure 135/103 H 153/93 H 139/80 Pulse Oximetry 94 95 95 01/28/22 15:30 01/28/22 16:00 Temperature Pulse Rate 76 91 H Respiratory Rate 16 Blood Pressure 123/77 Pulse Oximetry 92 95 MDM - Abdominal Pain <Reji Rosado PA-C - Last Filed: 01/28/22 17:02> Differential Diagnosis Differential diagnosis: Likely other Lab Data Result diagrams: 01/28/22 14:21 01/28/22 14:21 Labs: Lab Results 01/28/22 01/28/22 Range/Units 14:21 14:21 WBC 9.6 (4.5-11.0) X10^3/uL RBC 5.91 H (4.5-5.9) X10^6/uL Hgb 17.4 (13.5-17.5) g/dL Hct 50.1 (41-53) % MCV 84.8 (80-100) fL MCH 29.4 (26-34) PG MCHC 34.7 (30-36) % RDW 13.1 (11.6-14.8) % Plt Count 140 L (150-400) X10^3/uL Neut % (Auto) 62.7 (50-75) % Lymph % (Auto) 26.3 (25-40) % [place] % (Auto) 8.4 (3-14) % Eos % (Auto) 1.8 L (2-4) % Baso % (Auto) 0.8 (0-2) % Neut # (Auto) 6000 (9429-5082) /uL Lymph # (Auto) 2500 (9472-3647) /uL [place] # (Auto) 800 (0-900) /uL Eos # (Auto) 200 (0-450) /uL Baso # (Auto) 100 (0-100) /uL Sodium 139 (137-145) mmol/L Potassium 4.2 (3.4-5.1) mmol/L Chloride 104 (98-107) mmol/L Carbon Dioxide 28 (22-32) mmol/L BUN 15 (9-20) mg/dL Creatinine 0.86 (0.66-1.25) mg/dL Estimated GFR > 60 (>60) mL/min BUN/Creatinine Ratio 17.4 (6-22) Glucose 106 H (70-100) mg/dL Calcium 8.9 (8.4-10.2) mg/dL Total Bilirubin 0.6 (0.2-1.3) mg/dL AST 46 (17-59) IU/L ALT 68 H (<50) IU/L Alkaline Phosphatase 48 (38-126) U/L Total Protein 7.4 (6.3-8.2) g/dL Albumin 4.3 (3.5-5.0) g/dL Globulin 3.1 (1.7-4.1) g/dL Albumin/Globulin Ratio 1.4 (1.0-2.8) Lipase 126 (23-300) U/L Point of care testing: Urine Dip Bedside Urine Glucose Negative Bedside Urine Bilirubin - Negative Bedside Urine Ketone - Negative Urine Specific [place] 1.02 Bedside Urine Occult Blood - Negative Bedside Urine pH 6 Bedside Urine Protein - Negative Bedside Urine Urobilinogen - Negative Bedside Urine Nitrite - Negative Bedside Urine Leukocytes - Negative Esterase MDM Narrative Medical decision making narrative: Patient was evaluated today for right upper quadrant abdominal pain that started this morning. He states that it would began to get worse shortly after he had breakfast. Patient reports that he has had his gallbladder previously assessed and was found to have some gallstones he did seek a surgical consultation and his insurance denied having his gallbladder removed. Today's workup did demonstrate evidence of gallstones however there was no abnormality visualized in the common bile duct and the lab work is all essentially negative. I believe it is feasible that his symptoms are result of his ongoing gallstones and with his stability and vital signs remained stable I think it is okay to discharge him home. A prescription for Bentyl will be prescribed to help him with his pain and discomfort. Patient will be discharged home. <Kayleen Lucero, DO - Last Filed: 01/29/22 08:24> Lab Data Labs: Lab Results 01/28/22 01/28/22 Range/Units 14:21 14:21 WBC 9.6 (4.5-11.0) X10^3/uL RBC 5.91 H (4.5-5.9) X10^6/uL Hgb 17.4 (13.5-17.5) g/dL Hct 50.1 (41-53) % MCV 84.8 (80-100) fL MCH 29.4 (26-34) PG MCHC 34.7 (30-36) % RDW 13.1 (11.6-14.8) % Plt Count 140 L (150-400) X10^3/uL Neut % (Auto) 62.7 (50-75) % Lymph % (Auto) 26.3 (25-40) % [place] % (Auto) 8.4 (3-14) % Eos % (Auto) 1.8 L (2-4) % Baso % (Auto) 0.8 (0-2) % Neut # (Auto) 6000 (5110-1469) /uL Lymph # (Auto) 2500 (6886-9418) /uL [place] # (Auto) 800 (0-900) /uL Eos # (Auto) 200 (0-450) /uL Baso # (Auto) 100 (0-100) /uL Sodium 139 (137-145) mmol/L Potassium 4.2 (3.4-5.1) mmol/L Chloride 104 (98-107) mmol/L Carbon Dioxide 28 (22-32) mmol/L BUN 15 (9-20) mg/dL Creatinine 0.86 (0.66-1.25) mg/dL Estimated GFR > 60 (>60) mL/min BUN/Creatinine Ratio 17.4 (6-22) Glucose 106 H (70-100) mg/dL Calcium 8.9 (8.4-10.2) mg/dL Total Bilirubin 0.6 (0.2-1.3) mg/dL AST 46 (17-59) IU/L ALT 68 H (<50) IU/L Alkaline Phosphatase 48 (38-126) U/L Total Protein 7.4 (6.3-8.2) g/dL Albumin 4.3 (3.5-5.0) g/dL Globulin 3.1 (1.7-4.1) g/dL Albumin/Globulin Ratio 1.4 (1.0-2.8) Lipase 126 (23-300) U/L Point of care testing: Urine Dip Bedside Urine Glucose Negative Bedside Urine Bilirubin - Negative Bedside Urine Ketone - Negative Urine Specific [place] 1.02 Bedside Urine Occult Blood - Negative Bedside Urine pH 6 Bedside Urine Protein - Negative Bedside Urine Urobilinogen - Negative Bedside Urine Nitrite - Negative Bedside Urine Leukocytes - Negative Esterase Discharge Plan Departure Patient Disposition: Home Clinical Impression: Carpal tunnel syndrome Gallstones without obstruction of gallbladder Qualifiers: Cholelithiasis location: gallbladder Cholecystitis presence: without cholecystitis Qualified Code(s): K80.20 - Calculus of gallbladder without cholecystitis without obstruction Abdominal pain Qualifiers: Abdominal location: right upper quadrant Qualified Code(s): R10.11 - Right upper quadrant pain Instructions: DI for Gallstones, DI for Carpal Tunnel Syndrome Activity Restrictions/Additional Instructions: You were seen today for your right upper quadrant abdominal pain which I think is likely result of your ongoing issues with your gallstones. I would definitely avoid spicy or fatty foods to help cut down on the pain associated. At some point you will have to have her gallbladder removed and you should consider surgical consultation for that. Your ongoing numbness in your right hand I think is likely result of carpal tunnel syndrome however you would need to see a [facility] specialist for further diagnosis and workup. That is also surgical consultation. A prescription for Bentyl was sent to your pharmacy of choice you can pick it up at your earliest convenience. Thank you for the opportunity to care for you today. Prescriptions: New dicyclomine 20 mg tablet 20 mg PO TID Qty: 30 0RF No Action ondansetron 4 mg tablet,disintegrating 4 mg PO Q8H Qty: 10 0RF omeprazole 20 mg capsule,delayed release(DR/EC) 20 mg PO DAILY Qty: 30 0RF Stand Alone Forms: Work Release Note <Kayleen Lucero DO - Last Filed: 01/29/22 08:24> Cosign ED Attending Cosignature Attestation: I was immediately available in the department for consultation. Documentation has been reviewed. I agree with assessment and plan.
[2022-01-28] MEDS: KETOROLAC 30 MG/ML VIAL IV (14:22)
[2022-01-28] MEDS: SODIUM CHLORIDE 0.9% 1,000 ML 150 ML IV (14:23)
[2022-01-28 14:37] LABS: Add Manual Diff / Slide Review NO; Basophils Absolute Auto 100 /uL (0-100); Basophils Percent Auto 0.8 % (0-2); Eosinophils Absolute Auto 200 /uL (0-450); Eosinophils Percent Auto 1.8 % (2-4); Hematocrit 50.1 % (41-53); Hemoglobin 17.4 g/dL (13.5-17.5); Lymphocytes Absolute Auto 2500 /uL (1100-4500); Lymphocytes Percent Auto 26.3 % (25-40); Mean Corpuscular HGB Conc 34.7 % (30-36); Mean Corpuscular Hemoglobin 29.4 PG (26-34); Mean Corpuscular Volume 84.8 fL (80-100); Monocytes Absolute Auto 800 /uL (0-900); Monocytes Percent Auto 8.4 % (3-14); Neutrophils Absolute Auto 6000 /uL (1500-7000); Neutrophils Percent Auto 62.7 % (50-75); Platelet Count 140 X10^3/uL (150-400); Red Blood Cell Count 5.91 X10^6/uL (4.5-5.9); Red Cell Distribution Width 13.1 % (11.6-14.8); White Blood Cell Count 9.6 X10^3/uL (4.5-11.0)
[2022-01-28 14:47] LABS: Alanine Aminotransferase 68 IU/L (<50); Albumin 4.3 g/dL (3.5-5.0); Albumin Globulin Ratio 1.4 (1.0-2.8); Aspartate Aminotransferase 46 IU/L (17-59); BUN Creatinine Ratio 17.4 (6-22); Bilirubin Total 0.6 mg/dL (0.2-1.3); Blood Urea Nitrogen 15 mg/dL (9-20); Calcium 8.9 mg/dL (8.4-10.2); Chloride 104 mmol/L (98-107); Estimated Glomerular Filt Rate > 60 mL/min (>60); Globulin 3.1 g/dL (1.7-4.1); Glucose 106 mg/dL (70-100); Lipase 126 U/L (23-300); Potassium 4.2 mmol/L (3.4-5.1); Sodium 139 mmol/L (137-145); Total Protein 7.4 g/dL (6.3-8.2)
[2022-01-28 14:51] LABS: Alkaline Phosphatase 48 U/L (38-126); Carbon Dioxide 28 mmol/L (22-32); HEMOLYSIS 31 (0-50)
== END 2022-01-28 17:13 | disposition home or self-care (01) ==
PROVIDERS: Emergency Provider Physician Assistant
DX: K80.20 Calculus of gallbladder without cholecystitis without obstruction (principal); R10.11 Right upper quadrant pain; G56.00 Carpal tunnel syndrome, unspecified upper limb
CPT/HCPCS: 36415; 76705; 80053; 81003; 83690; 85025; 96374; 99284; J1885

== ENCOUNTER 2022-02-12 10:04 | Emergency (ER) | payer OTHER, MEDICAID, SELFPAY ==
[2022-02-12 10:18] VITALS: BP 163/107; PULSE 94; RESP 16; TEMP 36.6; O2SAT 97
--- NOTE | 2022-02-12 11:00 | ED_ITS ---
HPI - Ear Problem General Chief complaint: Ear Stated complaint: intense pain in right ear, draining Time Seen by Provider: 02/12/22 10:57 Source: patient Mode of arrival: Ambulatory Limitations: no limitations History of Present Illness HPI Narrative: This is a 26-year-old male who comes emergency department with complaint of right ear pain. Patient has had some drainage of clearish liquid. He states pain been for the last several days with a lot of pressure. He denies fevers. He had an episode of vomiting last night from pain. He denies any swelling of the outer ear he states the pain feels deep. 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 This was when he lived in [place] he has not had any issues or have a local ENT to follow up with. He denies any daily medications. He denies other medical issues. He denies other surgeries. He does use tobacco. Occasional marijuana no other recreational drugs. Related Data Previous Rx's Medication Instructions Recorded omeprazole 20 mg capsule,delayed 20 mg PO DAILY #30 cap 12/27/21 release ondansetron 4 mg disintegrating 4 mg PO Q8H #10 tab 12/27/21 tablet dicyclomine 20 mg tablet 20 mg PO TID #30 tab 01/28/22 ofloxacin 0.3 % ear drops 5 drp EAR-RIGHT DAILY 7 Days #5 ml 02/12/22 Allergies Allergy/AdvReac Type Severity Reaction Status Date / Time No Known Drug Allergies Allergy Verified 12/04/21 12:29 Review of Systems Review of Systems ROS Unobtainable: All systems reviewed & are unremarkable except as noted in HPI and below Patient History Social History Smoking Status: Current every day smoker Smoking Status: Current every day smoker Substance Use Type: marijuana Exam Narrative Exam Narrative: GEN: well nourished, well appearing male, alert and oriented x 3, patient appears to be in mild distress. HEENT: Atraumatic, pupils are equal round reactive to light, extraocular movements are intact, nares are clear, right TM is unable to be visualized there is swelling, erythema without purulent drainage it is more serous, patient is tender with movement of the tragus. No external cellulitis or erythema. Left TM is visualized there is follow-up amount of white discoloration just anterior to the TM, no swelling, erythema or other skin changes noted. There is no conjunctival pallor. Throat is clear without any exudates, erythema, tonsillar enlargement or uvular deviation HEART: Regular rate and rhythm without murmur, clicks, rubs. LUNGS:Lungs clear to auscultation, no wheezes, rales, crackles, chest moves symmetrically ABD:bowel sounds normal, soft, non-tender, no guarding, rebound, rigidity, no masses noted, no hepatosplenomegaly MSCL: full range of motion, normal gait NEURO:CN 2-12 intact, sensation normal SKIN: No rash, erythema or other skin changes. Initial Vital Signs Initial Vital Signs: Vital Signs Temperature 97.8 F 02/12/22 10:18 Pulse Rate 94 H 02/12/22 10:18 Respiratory Rate 16 02/12/22 10:18 Blood Pressure 163/107 H 02/12/22 10:18 Pulse Oximetry 97 02/12/22 10:18 Course Orders Ordered: Discontinued Medications Ketorolac Tromethamine (Ketorolac 30 Mg/Ml Vial) 30 mg IM NOW ONE Stop: 02/12/22 11:23 Last Admin: 02/12/22 12:12 Dose: 30 mg Documented by: CAMERON Vital Signs Vital signs: Vital Signs - 8 hr 02/12/22 12:29 Pulse Rate 89 Respiratory Rate 17 Blood Pressure 151/103 H Pulse Oximetry 98 Medical Decision Making [facility] Narrative Medical decision making narrative: This is a 26-year-old with tobacco abuse who has had choleostoma on the left with 8 prior surgeries on the left ear he has otitis externa noted on right today tender with serous drainage. Plan to start ear drops and antibiotic form and was given referral to ENT is he is new to the area and has not established. Discharge Plan Departure Patient Disposition: Home Clinical Impression: Otitis externa Instructions: DI for Otitis Externa Activity Restrictions/Additional Instructions: Follow-up with ENT, for your prior ear issues referral is included below. Also discussed with your physician about getting colonoscopy or evaluation for your discomfort prior to having bowel movements. Use antibiotic ear drops as prescribed use these until completion. Prescription was sent to [facility] in [place]. You may take Tylenol up to 1000 mg every 6hours and/or ibuprofen up to 800 mg every 8 hours as needed pain. Please return for fevers increasing swelling, pain, redness of the face or neck, persistent vomiting or other new or concerning symptoms. Prescriptions: New ofloxacin 0.3 % drops 5 drp EAR-RIGHT DAILY 7 Days Qty: 5 0RF No Action ondansetron 4 mg tablet,disintegrating 4 mg PO Q8H Qty: 10 0RF omeprazole 20 mg capsule,delayed release(DR/EC) 20 mg PO DAILY Qty: 30 0RF dicyclomine 20 mg tablet 20 mg PO TID Qty: 30 0RF Referrals: Nino Roca MD [Physician] - Rodrigo Meza MD [Primary Care Provider] -
[2022-02-12] MEDS: KETOROLAC 30 MG/ML VIAL IM (12:12)
[2022-02-12 12:29] VITALS: BP 151/103; PULSE 89; RESP 17; O2SAT 98
== END 2022-02-12 12:30 | disposition home or self-care (01) ==
PROVIDERS: Emergency Provider Emergency Medicine; PCP Family Medicine
DX: H60.91 Unspecified otitis externa, right ear (principal); R11.10 Vomiting, unspecified
CPT/HCPCS: 96372; 99283; J1885

== ENCOUNTER → 2022-02-28 09:11 | Outpatient (CLI) | payer OTHER, MEDICAID, SELFPAY ==
[2022-02-28 09:56] LABS: Add Manual Diff / Slide Review NO; Basophils Absolute Auto 100 /uL (0-100); Basophils Percent Auto 0.9 % (0-2); Eosinophils Absolute Auto 200 /uL (0-450); Eosinophils Percent Auto 2.1 % (2-4); Hematocrit 49.2 % (41-53); Hemoglobin 17.1 g/dL (13.5-17.5); Lymphocytes Absolute Auto 2400 /uL (1100-4500); Mean Corpuscular HGB Conc 34.8 % (30-36); Mean Corpuscular Hemoglobin 29.4 PG (26-34); Mean Corpuscular Volume 84.5 fL (80-100); Monocytes Absolute Auto 600 /uL (0-900); Monocytes Percent Auto 7.8 % (3-14); Neutrophils Absolute Auto 4700 /uL (1500-7000); Neutrophils Percent Auto 59.2 % (50-75); Platelet Count 140 X10^3/uL (150-400); Red Blood Cell Count 5.82 X10^6/uL (4.5-5.9)
[2022-02-28 10:26] LABS: Alanine Aminotransferase 69 IU/L (<50); Albumin 4.2 g/dL (3.5-5.0); Albumin Globulin Ratio 1.4 (1.0-2.8); Alkaline Phosphatase 53 U/L (38-126); Aspartate Aminotransferase 45 IU/L (17-59); BUN Creatinine Ratio 22.1 (6-22); Bilirubin Total 0.4 mg/dL (0.2-1.3); Blood Urea Nitrogen 17 mg/dL (9-20); Carbon Dioxide 27 mmol/L (22-32); Chloride 104 mmol/L (98-107); Cholesterol 200 mg/dL (140-199); Estimated Glomerular Filt Rate > 60 mL/min (>60); Globulin 2.9 g/dL (1.7-4.1); Glucose 96 mg/dL (70-100); HDL Cholesterol 29 mg/dL (40-60); HEMOLYSIS < 15 (0-50); Potassium 4.5 mmol/L (3.4-5.1); Sodium 138 mmol/L (137-145); Total Protein 7.1 g/dL (6.3-8.2)
[2022-02-28 10:34] LABS: Appearance Urine UA CLEAR; Bilirubin Urine UA NEGATIVE (NEGATIVE); Color Urine UA YELLOW; Glucose Urine UA NEGATIVE (Negative); Ketones Urine UA NEGATIVE (NEGATIVE); Leukocyte Esterase Urine UA NEGATIVE (NEGATIVE); Nitrite Urine UA NEGATIVE (Negative); Occult Blood Urine UA TRACE-LYSED (Negative); Protein Urine UA NEGATIVE (Negative); Specific Gravity Urine UA 1.025 (1.000-1.035); Urobilinogen Urine UA 0.2 E.U./dL (0.2); pH Urine UA 5.5 (4.5-8.0)
[2022-02-28 10:35] LABS: Triglycerides 590 mg/dL (35-150)
[2022-02-28 10:57] LABS: Bacteria Urine Occasional (0-1); Culture Indicated Urine Cult Not Indicated; RBC Urine 0-1/HPF (0-5/HPF); Squamous Epithelial Cell Urine 0-1 /HPF (0-5/HPF); WBC Urine 0-1/HPF (0-5/HPF)
[2022-02-28 10:58] LABS: Prostate Specific Antigen Scrn 0.148 ng/mL (0.1-4.0)
[2022-02-28 11:30] LABS: Hemoglobin A1C% w Est Avg Glu 5.6 % (4.0-6.0)
[2022-02-28 11:46] LABS: Creatinine Urine Random 109.1 mg/dL; Microalbumi Creatinin Ratio Ur 25.6 ug/mg CR (<30); Microalbumin Urine Random 2.8 mg/dL (0-1.6)
== END ==
PROVIDERS: PCP Family Medicine; Referring Provider Family Medicine; Visit Provider Family Medicine
DX: E66.01 Morbid (severe) obesity due to excess calories (principal); R03.0 Elevated blood-pressure reading, without diagnosis of hypertension; R73.9 Hyperglycemia, unspecified; R74.8 Abnormal levels of other serum enzymes; H60.60 Unspecified chronic otitis externa, unspecified ear; R19.8 Other specified symptoms and signs involving the digestive system and abdomen; Z12.5 Encounter for screening for malignant neoplasm of prostate
CPT/HCPCS: 36415; 80053; 80061; 81001; 82043; 82570; 83036; 84443; 85025; G0103

== ENCOUNTER → 2022-03-13 10:32 | Outpatient (CLI) | payer OTHER, MEDICAID, SELFPAY ==
--- NOTE | 2022-03-13 10:34 | DI.RAD.S_ITS ---
PROCEDURE: XR CHEST 2V INDICATIONS: chronic cough TECHNIQUE: 2 views of the chest were acquired. COMPARISON: None. FINDINGS: Surgical changes and devices: Median sternotomy wires. Lungs and pleura: Lungs are clear. No pleural effusions or pneumothorax. Mediastinum: Mediastinal contours are normal. Heart size is normal. Bones and chest wall: No suspicious bony abnormalities. Soft tissues appear unremarkable. IMPRESSION: No source for chronic cough identified radiographically. Dictated by: Anjum Oconnell RRA Interpreted: Izabela Olivarez MD on 03/13/2022 at 10:52 Transcribed by: MICHELLE on 03/13/2022 at 10:53 Approved by: Izabela Olivarez M.D. on 03/13/2022 at 17:23
== END ==
PROVIDERS: PCP Family Medicine; Referring Provider Family Medicine; Visit Provider Family Medicine
DX: R05.3 Chronic cough (principal)
CPT/HCPCS: 71046

== ENCOUNTER → 2022-05-07 08:08 | Outpatient (CLI) | payer OTHER, MEDICAID, SELFPAY ==
--- NOTE | 2022-05-07 08:13 | DI.RAD.S_ITS ---
PROCEDURE: XR LUMBAR SPINE 2-3V INDICATIONS: left leg pain TECHNIQUE: 3 views of the lumbar spine were acquired. COMPARISON: [facility], , ABDOMEN LIMITED, 01/28/2022, 16:34. FINDINGS: Bones: 5 [id number] vertebrae are present. No significant curvature or listhesis. No vertebral body compression fractures. No suspicious bony lesions. Mild endplate spurring at L4-5 and L5-S1. No substantial disc height loss visualized. Mild facet degenerative changes also present at L5-S1. Soft tissues: Overlying bowel gas pattern is normal. A gallstone is present as seen on prior ultrasound. IMPRESSION: 1. No acute lumbar spine fracture visualized radiographically. 2. Mild degenerative changes of the lumbar spine. Dictated by: Edmundo Horton M.D. on 05/07/2022 at 9:23 Approved by: Edmundo Horton M.D. on 05/07/2022 at 9:26
--- NOTE | 2022-05-07 08:13 | DI.RAD.S_ITS ---
PROCEDURE: XR FEMUR LT MIN 2V INDICATIONS: left leg pain TECHNIQUE: 2 views of the femur were acquired. COMPARISON: None. FINDINGS: Bones: No acute fracture visualized. At the lateral distal femoral metadiaphysis, a bone lesion is present located eccentrically. It appears largely lucent with an adjacent well-defined sclerotic margin, however there are areas which appear more sclerotic and ill-defined. Soft tissues: No suspicious soft tissue calcifications or masses. IMPRESSION: 1. No acute fracture visualized. 2. Nonspecific bone lesion at the lateral distal femoral metadiaphysis. Differential considerations include a healing or atypical non-ossifying fibroma versus primary osseous malignancy. MRI of the femur with and without contrast is recommended for further evaluation. Dictated by: Edmundo Horton M.D. on 05/07/2022 at 8:59 Approved by: Edmundo Horton M.D. on 05/07/2022 at 9:23
== END ==
PROVIDERS: PCP Family Medicine; Referring Provider Family Medicine; Visit Provider Family Medicine
DX: M79.605 Pain in left leg (principal); M54.50 Low back pain, unspecified; G89.29 Other chronic pain; M89.9 Disorder of bone, unspecified; M47.816 Spondylosis without myelopathy or radiculopathy, lumbar region
CPT/HCPCS: 72100; 73552

== ENCOUNTER 2022-05-08 19:46 | Emergency (ER) | payer OTHER, MEDICAID, SELFPAY ==
[2022-05-08 20:37] VITALS: BP 144/98; PULSE 87; RESP 17; TEMP 37.1; O2SAT 95; BMI 27.6
[2022-05-08] MEDS: ACETAMINOPHEN 325 MG TABLET 975 MG PO (20:49)
--- NOTE | 2022-05-09 00:56 | ED_ITS ---
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 Describes no fevers, cough, chills, abdominal pain. He is having trouble focusing, concentrating and was unable to sleep at all last night secondary to pain. Related Data Previous Rx's Medication Instructions Recorded albuterol sulfate 90 mcg/actuation 2 puff inhalation Q6H PRN 03/13/22 aerosol inhaler shortness of breath or wheezing #8.5 grams amlodipine 5 mg tablet 5 mg PO DAILY #90 tabs 03/13/22 atorvastatin 20 mg tablet (Lipitor) 20 mg PO BEDTIME #90 tabs 05/01/22 metoprolol succinate 25 mg 25 mg PO DAILY #90 tabs 05/01/22 tablet,extended release 24 hr amoxicillin 500 mg capsule 500 mg PO TID #15 caps 05/09/22 oxycodone-acetaminophen 5 mg-325 1 tab PO Q6H PRN pain #10 tabs 05/09/22 mg tablet Allergies Allergy/AdvReac Type Severity Reaction Status Date / Time No Known Drug Allergies Allergy Verified 04/20/22 09:08 Review of Systems Review of Systems Narrative: Remainder of complete review of systems is otherwise unremarkable except for that included in the HPI. Patient History Medical History Chronic low back pain Elevated liver enzymes Hyperglycemia Hypertension Left leg pain Obesity, Class III, BMI 40-49.9 (morbid obesity) Social History marital status: household members: children lives independently: Yes Smoking Status: Current every day smoker Smoking Status: Current every day smoker alcohol intake frequency: 0-2 drinks per day Substance Use Type: marijuana Exam Initial Vital Signs Initial Vital Signs: Vital Signs Temperature 98.7 F 05/08/22 20:37 Pulse Rate 87 05/08/22 20:37 Respiratory Rate 17 05/08/22 20:37 Blood Pressure 144/98 H 05/08/22 20:37 Pulse Oximetry 95 05/08/22 20:37 Oxygen Delivery Method 05/08/22 20:37 General: Alert appropriate in no acute distress HEENT: Poor dentition with significant periodontal disease appreciated but the majority of his teeth are still present. It appears that the left lower wisdom tooth has broken off at the gumline and that the area of tenderness with exposed root. No obvious pointing abscess there but he does have some minor cervical adenopathy on the left side. Respiratory: Able to speak in full sentences, no obvious respiratory distress Skin: No obvious rashes, warm and dry Neurologic: Grossly intact no obvious asymmetries or abnormalities Psych: appropriate insight and affect, cooperative Course Orders Ordered: Discontinued Medications Acetaminophen (Acetaminophen 325 Mg Tablet) 975 mg PO NOW ONE Stop: 05/08/22 20:46 Last Admin: 05/08/22 20:49 Dose: 975 mg Documented By: JENNIFER Amoxicillin (Amoxicillin 250 Mg Capsule) 500 mg PO NOW ONE Stop: 05/09/22 00:50 Last Admin: 05/09/22 00:59 Dose: 500 mg Ketorolac Tromethamine (Ketorolac 30 Mg/Ml Vial) 30 mg IM NOW ONE Stop: 05/09/22 00:50 Last Admin: 05/09/22 00:59 Dose: 30 mg Oxycodone/Acetaminophen (Oxycodone/Acetaminophen 5/325 Tablet) 1 tab PO NOW ONE Stop: 05/09/22 00:50 Last Admin: 05/09/22 00:59 Dose: 1 tab Oxycodone/Acetaminophen (Oxycodone/Apap 5/325 Prepack) 1 bottle MISC SEEINSTR ONE Stop: 05/09/22 00:50 Last Admin: 05/09/22 00:59 Dose: 1 bottle Vital Signs Vital signs: Vital Signs - 8 hr 05/08/22 20:37 Temperature 98.7 F Pulse Rate 87 Respiratory Rate 17 Blood Pressure 144/98 H Pulse Oximetry 95 Oxygen Delivery Method Room Air MDM - Dental/Oral MDM Narrative Medical decision making narrative: 27-year-old gentleman with severe left posterior pain broken tooth poor dentition exposed root. Because of the severity of pain a dental block is given with 5 cc of 1% lidocaine with epinephrine. Did help significantly. He is given a shot of Toradol, a Percocet and amoxicillin prescription he states that he has tried multiple dentists in the next available appointment is in over a month. His did find 1 this evening he takes walk-in appointments in his plan is to walk in for definitive treatment tomorrow. No signs of sepsis or deeper pharyngeal or tracking abscess. He is safe for home discharge Discharge Plan Departure Patient Disposition: Home Clinical Impression: Pain, dental Instructions: DI for Dental Pain Activity Restrictions/Additional Instructions: Thank you for coming in today Dental pain is always difficult to deal with. You were given an injection of lidocaine directly around the tooth for relief this evening. You are given an intramuscular injection of Toradol and a tablet of Percocet to help with pain once the lidocaine begins to wear off. You are also started on amoxicillin with presumptive developing infection. Prescriptions have been electronically transmitted to [facility] Prescription for additional pain medications and amoxicillin given. I strongly recommend that you follow-up with the dentist to has walk-in appointments available. All of the treatments that we done today are merely temporizing to treat the pain and will not treat the underlying problem. I wish you the best Prescriptions: New amoxicillin 500 mg capsule 500 mg PO TID Qty: 15 0RF oxycodone-acetaminophen 5-325 mg tablet 1 tab PO Q6H PRN (Reason: pain) Qty: 10 0RF No Action atorvastatin [Lipitor] 20 mg tablet 20 mg PO BEDTIME Qty: 90 3RF metoprolol succinate 25 mg tablet extended release 24 hr 25 mg PO DAILY Qty: 90 3RF amlodipine 5 mg tablet 5 mg PO DAILY Qty: 90 3RF albuterol sulfate 90 mcg/actuation HFA aerosol inhaler 2 puff inhalation Q6H PRN (Reason: shortness of breath or wheezing) Qty: 8.5 2RF Referrals: Rodrigo Meza MD [Primary Care Provider] -
[2022-05-09] MEDS: OXYCODONE/APAP 5/325 PREPACK 1 BOTTLE MISC (00:59)
[2022-05-09] MEDS: KETOROLAC 30 MG/ML VIAL IM (00:59)
[2022-05-09] MEDS: AMOXICILLIN 250 MG CAPSULE 500 MG PO (00:59)
[2022-05-09] MEDS: OXYCODONE/ACETAMINOPHEN 5/325 TABLET 1 TAB PO (00:59)
== END 2022-05-09 01:37 | disposition home or self-care (01) ==
PROVIDERS: Emergency Provider Emergency Medicine; PCP Family Medicine
DX: K08.89 Other specified disorders of teeth and supporting structures (principal)
CPT/HCPCS: 96372; 99283; J1885

== ENCOUNTER → 2022-06-12 10:52 | Outpatient (CLI) | payer OTHER, MEDICAID, SELFPAY ==
[2022-06-12 12:50] LABS: COVID19 -Nasal RAPID Negative (Negative)
== END ==
PROVIDERS: PCP Family Medicine; Visit Provider Surgery
DX: Z20.822 Contact with and (suspected) exposure to COVID-19 (principal); Z01.812 Encounter for preprocedural laboratory examination
CPT/HCPCS: 87635; C9803

== ENCOUNTER 2022-06-13 06:36 | Day surgery (SDC) | payer OTHER, MEDICAID, SELFPAY ==
[2022-06-07 10:36] VITALS: BMI 39.2
[2022-06-13] VITALS (15 sets, daily range): BP systolic 136–181; BP diastolic 92–124; PULSE 78–98; RESP 12–26; TEMP 36.5–37.2; O2SAT 83–99; BMI 39.0; BMI 39.4
--- NOTE | 2022-06-13 | PATH_ITS ---
[facility] Accession Number: [id number] . 01 Material submitted: . gallbladder - GALLBLADDER . 01 Diagnosis: Gallbladder, Cholecystectomy: Chronic cholecystitis and cholelithiasis. Benign pericystic lymph node. Negative for dysplasia and malignancy. [facility] 06/18/2022 1802 Local . 01 Electronically signed: . Dianna Arzate MD, Pathologist NPI- [id number] . 01 Gross description: . The specimen is received in formalin labeled with the patient's name and gallbladder, and consists of an intact gallbladder measuring 11.3 x 3.3 x 2.7 cm. The serosa is green and smooth while the hepatic surface is rough and unremarkable. The cystic duct is received closed with a clamp, is inked blue, , and a maloney lymph node candidate is identified measuring 1.5 cm in greatest dimension. Opening the specimen reveals two maloney to brown roughened calculi measuring up to 2.3 cm in greatest dimension and dark green thick viscous bile. The mucosa is dark green and velvety with a partially circumferential mucosa ridge located near the center of the specimen and measuring 2.2 cm in length and 0.3 cm in width. No lesions, discolorations or polyps are identified, and the will average 0.2 cm thick. Tar Man sections to include the cystic duct margin, one-half of the lymph node candidate, and full-thickness cross-sections are submitted in cassettes A1-A2. ([id number]) /MRV 06/15/2022 1628 Local . 01 Pathologist provided ICD-10: K81.1 . 01 CPT . 868891 Performed at: 01 [facility] [address] [place] [address] [address], [place], [place] [id number] MD Howard Montague MD Phone: [phone]
--- NOTE | 2022-06-13 07:35 | PM.HP.1 ---
History of Present Illness History of Present Illness Date Patient Seen: 06/13/22 Time Patient Seen: 07:36 Chief complaint: SDC Narrative: 27-year-old male here for elective laparoscopic cholecystectomy for a diagnosis of biliary colic. There have been no significant interval changes in his health. Please refer to the H&P from April 2022 for further detail. Patient History Medical History ADHD Allergies Asthma Chronic low back pain Elevated liver enzymes Gout Headache Hyperglycemia Hypertension Left leg pain Obesity, Class III, BMI 40-49.9 (morbid obesity) FREDA (obstructive sleep apnea) Surgical History History of ear surgery (2002) History of open heart surgery (2011) Family & Social History Social History: household members spouse,children lives independently Yes Tobacco & Substance use: Tobacco type cigarettes Smoking Status Current every day smoker Smoking packs per day 0.5 alcohol intake former alcohol intake frequency 0-2 drinks per day Substance Use Type marijuana Meds Home Medications and Allergies Home Medications Medication Instructions Recorded Confirmed Type albuterol sulfate 90 mcg/actuation 2 puff inhalation Q6H PRN 03/13/22 06/13/22 Rx aerosol inhaler shortness of breath or wheezing #8.5 grams amlodipine 5 mg tablet 5 mg PO DAILY #90 tabs 03/13/22 06/13/22 Rx atorvastatin 20 mg tablet (Lipitor) 20 mg PO BEDTIME #90 tabs 05/01/22 06/13/22 Rx metoprolol succinate 25 mg 25 mg PO DAILY #90 tabs 05/01/22 06/13/22 Rx tablet,extended release 24 hr Allergies Allergy/AdvReac Type Severity Reaction Status Date / Time No Known Drug Allergies Allergy Verified 06/13/22 07:09 Exam Narrative Exam Narrative: General adult male alert oriented no acute distress Abdomen soft nontender nondistended Assessment & Plan Assessment and plan (1) Biliary colic: Status: Acute Assessment & Plan narrative: 27-year-old male history of obesity asthma and obstructive sleep apnea here for elective laparoscopic cholecystectomy for biliary colic. Ovary the operation was again discussed with the patient at the bedside. Operative risks including bleeding, infection, conversion open, damage to surrounding structures, bile leak, anesthetic complication and were discussed. His questions have been answered and he is in agreement with this plan. Time Spent With Patient Critical Care time: I spent a total of [] minutes of critical care time on this patient's care today; this time is exclusive of procedural time.
[2022-06-13] MEDS: LACTATED RINGERS 1,000 ML 100 ML IV (07:38)
[2022-06-13] MEDS: CEFAZOLIN 2 GM/100 ML PREMIX 100 ML IV (08:07)
--- NOTE | 2022-06-13 08:28 | SUR.OPER ---
Supine on padded OR bed, head on pillow, safety belt at thigh, left arm padded and tucked at side. Right arm secured on padded arm board <90 degrees abduction. Legs uncrossed. Padded footboard in place. Tape over blanket to secure lower legs. Gel pad under bilateral heels.
[2022-06-13] MEDS: ACETAMINOPHEN IV 1,000 MG/100 ML VIAL 400 MG IV (08:30)
[2022-06-13] MEDS: BUPIVACAINE 0.25% (PF) VIAL 30 ML INJ (08:35)
[2022-06-13] MEDS: ALBUTEROL 2.5 MG/3 ML NEB (ADULT) INH ×2 (09:13→12:03)
--- NOTE | 2022-06-13 09:17 | PM.OP.1 ---
Operative Date/Time/Diagnoses Date of procedure: 06/13/22 Time of procedure: 11:11 Pre-op diagnosis: Symptomatic cholelithiasis Post-op diagnosis: same Procedure & Clinicians Procedure: Laparoscopic cholecystectomy Same procedure as scheduled: Yes Indications: 27-year-old male with symptoms and radiographic findings consistent with symptomatic cholelithiasis Surgeon: Hector Hankins Click Yes if Unassisted: Yes Anesthesia Type: General Operative Notes Findings: Critical view of safety established. No evidence of acute cholecystitis. moderate size stone stuck within the neck of the gallbladder. Specimen(s): other (Gallbladder) Estimated Blood Loss (mL): 50 Procedure in detail: The patient was placed supine on the table and bilateral lower extremity compression devices were applied. Anesthesia was induced they were intubated with an endotracheal tube and received 2g of Ancef. A time-out was performed. They were prepped and draped in sterile fashion. An infraumbilical incision was made, the umbilical stalk was elevated and the fascia was sharply incised entering the abdomen atraumatically. A blunt tip 12mm balloon trocar was then inserted, pneumoperitoneum was established and inspection of the abdomen demonstrated no evidence of injury. They were placed head up and right side up and then a 11 mm port was placed high in the epigastrium and two 5mm in the right upper quadrant. The gallbladder was not acutely inflamed however there were some adhesions from the omentum to the gallbladder which were carefully taken down. The gallbladder was grasped by the fundus and retracted over the liver and retracted laterally by the infundibulum. Using electrocautery the lateral plane between the gallbladder and the liver was opened towards the fundus. The gallbladder was then retracted laterally and the medial plane was developed in the same manner. With the gallbladder mobilized the bottom of the cystic plate was visualized. The hepatocystic triangle was meticulosly skeletonized using hook electrocautery of all fat and fibrous tissue from both the front and the back. Only two structures were then clearly seen entering the gallbladder the cystic duct and the cystic artery. With the critical view of safety fully established the cystic duct was clipped twice proximally and once distally using the 5 mm Weck hemoclip applied under direct visualization and then sharply divided. The cystic artery was divided in the same fashion. The gallbladder was removed from the liver bed using electro cautery. The liver bed was then inspected for hemostasis and this was achieved. The abdomen was irrigated with sterile saline and inspection was made that showed the clips in good position. The specimen was removed using Endo-Catch. The abdomen was desufflated. The umbilical fascia was closed with 0 Vicryl in a [id number] fashion under direct visualization. Skin incisions were irrigated and closed with 4-0 Monocryl. 30 ml of 0.25% bupivacaine was infiltrated into the subcutaneous tissue of the incisions. The wounds were sealed with Dermabond. Patient emerged from anesthesia was extubated and transferred to recovery in stable condition. The sponge and instrument count at the end of the operation was correct. Complications: none Post-operative Condition: stable Disposition: same day surgery
[2022-06-13] MEDS: OXYCODONE IR 5 MG TABLET 10 MG PO (09:26)
[2022-06-13] MEDS: ONDANSETRON 4 MG/2 ML INJ IV (09:29)
[2022-06-13] MEDS: fentaNYL 100 MCG/2 ML INJ IV ×2 (09:34→09:46)
[2022-06-13] MEDS: hydrOXYzine 50 MG/ML INJ IM (09:43)
[2022-06-13] MEDS: LABETALOL 20 MG/4 ML SYRINGE 10 MG IV (10:00)
[2022-06-13] MEDS: LABETALOL 20 MG/4 ML SYRINGE IV (11:59)
--- NOTE | 2022-06-13 12:11 | SUR.PHASEI ---
1100 Dr whipple notified of pt B/P diastolic > 110 new order to give labetolol IV see orders.
--- NOTE | 2022-06-13 12:12 | SUR.PHASEI ---
1215 pt not progressing with pulmonary toileting, pt educated and demonstrated use of IS 02 sats remained 91-92 on 4l n/c neb tx given Prolem #2 labetalol given b/p 147/93 after 20 mg IV .
--- NOTE | 2022-06-13 12:51 | SUR.PHASEI ---
[address] Zuniga to re-evaluate pt at bedside . Pt remains somulent even with repeated stimuli and IS.
[2022-06-13] MEDS: HYDRALAZINE 20 MG/ML VIAL 10 MG IV ×2 (13:03→13:25)
== END 2022-06-13 17:00 | disposition home or self-care (01) ==
LOC: OR 10:05 → AC 13:55
PROVIDERS: PCP Family Medicine; Referring Provider Surgery; Visit Provider Surgery
PROC: 0FT44ZZ Resection of Gallbladder, Percutaneous Endoscopic Approach (ICD-10-PCS; CPT 47562; principal; 2022-06-13 07:45)
DX: K80.10 Calculus of gallbladder with chronic cholecystitis without obstruction (principal); I10 Essential (primary) hypertension; E66.01 Morbid (severe) obesity due to excess calories; G47.33 Obstructive sleep apnea (adult) (pediatric); F17.210 Nicotine dependence, cigarettes, uncomplicated
CPT/HCPCS: 47562; 00790; 82962; J0131; J0360; J0690; J1100; J1170; J1885; J2405; J2704; J3010; J3410; J7613